=== PATIENT | female | born 1970 | race Asian ===

== ENCOUNTER → 2021-05-08 | Outpatient (CLI) | payer OTHER | END | disposition home or self-care (01) | LOC: CARD 11:48 | PROVIDERS: ATTEND Physician Assistant | DX: R00.2 Palpitations (principal) | CPT/HCPCS: 93225; 93226 ==

== ENCOUNTER 2021-07-05 10:49 | Outpatient (CLI) | payer OTHER | END 2021-07-05 23:59 | disposition home or self-care (01) | LOC: RAD 10:49 | PROVIDERS: ATTEND Physician Assistant | DX: E05.90 Thyrotoxicosis, unspecified without thyrotoxic crisis or storm (principal); R79.89 Other specified abnormal findings of blood chemistry | CPT/HCPCS: 78013; A9516 ==